=== PATIENT | female | born 1940 | race Caucasian/White ===

== ENCOUNTER → 2025-01-29 11:04 | Outpatient (REF) | payer MEDICARE, SELFPAY | LOC: RAD 11:04 | PROVIDERS: ATTENDING PHYSICIAN Physical Medicine & Rehabilitation | DX: M47.816 Spondylosis without myelopathy or radiculopathy, lumbar region (principal); M47.814 Spondylosis without myelopathy or radiculopathy, thoracic region | CPT/HCPCS: 72072; 72100 ==

== ENCOUNTER 2025-03-20 15:55 | Emergency (ER) | payer MEDICARE, SELFPAY ==
[2025-03-20 16:03] VITALS: BP 205/114
--- NOTE | 2025-03-20 18:54 | ED.GENMED ---
History of Present Illness
General
Chief Complaint: Back Pain
Source: patient
Exam Limitations: none
Time Seen by Provider: 03/20/25 18:04
Nursing documentation reviewed up to this point in time: agreed with
History of Present Illness
History of Present Illness:
Patient states she was cleaning sink and felt a pop andpain to middle back. Pain continues to worsen. Injury occurred 4 days ago. Pain radiates down back. No weakness in extremities, no bowel or bladder symptoms, no parasthesia. Denies
fever/chills recent illness.
Past History
Past History
ED Past Medical History: GERD, [place] and Other (The patient also has chronic urinary tract infections breast cancer mitral valve stenosis mitral valve prolapse aortic regurg apparently recent [place] )
ED Past Surgical History: Other (The patient's surgery is remarkable for a lumpectomy left breast but no dissection total knee replacement. )
Social History
Living: with family
Employment: Retired
Review of Systems
Review of Systems
Allergies reviewed?: Yes
All Other Systems: ROS reviewed and negative except as documented in HPI and ROS
Constitutional: Reports no symptoms
EENT: Reports no symptoms
Respiratory: Reports no symptoms
Cardiac: Reports no symptoms
ABD/GI: Reports no symptoms
: Reports no symptoms
Musculoskeletal: Reports back pain (middle back pain)
Skin: Reports no symptoms
Neurological: Reports no symptoms
Psychiatric: Reports no symptoms
Phy Exam
General Physical Exam
General Presentation: moderate distress
General age: appears stated age
General Skin: warm and dry
General Habitus: normal
General Mental: alert
Cardiovascular Exam
Cardiovascular Exam: regular rate/rhythm and no edema
Pulmonary Exam
Pulmonary Exam: lungs clear and no respiratory distress
Gastrointestinal Exam
Gastrointestinal Exam: normal bowel sounds, non tender, soft, no organomegaly and non distended
Musculoskeletal Exam
Musculoskeletal Exam: no edema and neuro vasc intact
Skin Exam
Skin Exam: normal color, warm/dry and no rash
Psychiatric Exam
Psychiatric Exam: normal mood/affect
Course
Orders/Labs/Results
Orders:
Orders
03/20/25 18:48
CR Chest - 2 Views Urgent
Comment:
Reason For Exam: pain
Thoracic Spine 3 Views CR [CR Thoracic Spine 3 Views] Urgent
Comment:
Reason For Exam: pain
03/20/25 19:18
Hydrocodone 5/APAP 325 [[place] 5/325] 1 tablet PO NOW STA
03/20/25 19:35
Ketorolac [Toradol] 15 mg IM NOW STA
Vital Signs
Initial and Last Documented VS:
Initial Vital Signs
Temp Pulse Resp BP Pulse Ox
98.7 F 108 20 205/114 96
03/20/25 16:03 03/20/25 16:03 03/20/25 16:03 03/20/25 16:03 03/20/25 16:03
Last Documented Vital Signs
Temp Pulse Resp BP Pulse Ox
98.7 F 90 16 147/110 96
03/20/25 16:03 03/20/25 19:43 03/20/25 20:02 03/20/25 20:29 03/20/25 19:43
*Radiology
Radiology exam reviewed: radiology read reviewed
*Pulse Oximetry
SaO2: 96
Oxygen Mode of Delivery: Room air
Patient hypoxic: no
*Critical Care Note
Total Time (30-74mins, 75-104mins- exclusive of procedures): Not Applicable
Update Note
Update Note:
Patient to ED wtih complaint of middle back pain. [place] a pop at site while cleaning on Saturday. Pain radiates to lower back. No weakness in exxtremities. Sensation intact. Xray confirms chroninc Thoracic compression fxs but no acute fractures.
Will provide pain medication for comfort. SHe is discharged home with daughter and will follow closely with PCP. Given number for pain management follow up. Given instructions on s/s to return to ED and she is agreeable to plan.
ED Attending Note
-
Portions of this chart may have been created with voice recognition software.� Occasional wrong word or��sound alike� substitutions may have occurred due to the inherent limitations of voice recognition software.
Discharge Plan
Departure
Patient Disposition: Home (Routine Discharge)
Date of Disposition: 03/20/25
Time of Disposition: 19:25
Patient with high blood pressure during this ER visit?: No
Condition: Good
Covid-19: Not Applicable
Discharge Problem:
Back pain
Instructions: Radiculopathy (DC), Back Pain
Prescriptions:
New
hydrocodone-acetaminophen 5-325 mg tablet
1 tab PO Q4H PRN (Reason: Pain) Qty: 14 0RF
No Action
nitrofurantoin macrocrystal 50 MG capsule
50 mg PO DAILY
tizanidine 2 MG tablet
2 mg PO BID PRN (Reason: muscle relaxant)
hydrocodone-acetaminophen [[place]] 10 MG/325 MG tablet
1 tab PO Q6HPRN PRN (Reason: pain)
omeprazole [Prilosec] 40 MG capsule,delayed release(DR/EC)
40 mg PO BID
hydroxychloroquine 200 MG tablet
200 mg PO DAILY
olmesartan 20 MG tablet
20 mg PO DAILY
Zantac
150 mg PO HS
nitrofurantoin monohyd/m-cryst 100 MG capsule
100 mg PO BID Qty: 14 0RF
Referrals:
[facility], [Other]
Saw Slater DO [Non-Admitting Privileges, Orthopedics] - Keep scheduled appt
VENKATESH SHORT CRNP [Family Provider, Family Practice]
Interventions
Interventions:
*Risk Screen - Suicide Last Done: 03/20/25 16:03
*General Assessment Last Done: 03/20/25 16:03
*Neglect/Abuse Screening Last Done: 03/20/25 16:03
*ED- Fall Risk Assessment Last Done: 03/20/25 16:03
*ED COVID-19 Vaccine History Last Done: 03/20/25 16:08
*Nursing Disposition Last Done: 03/20/25 20:30
ED-Musculoskeletal Assessment Last Done: 03/20/25 18:29
Discharge Date and Time
Discharge Date/Time: 03/20/25 20:31
Print Language: TELUGU
Musculoskeletal Injury Exam
Musculoskeletal Injury Exam
Bilateral Middle Back:
Pain with Movement?: Moderate
Tender to palpation?: Moderate
Soft tissue swelling?: None
External deformity and angulation?: None
Joint effusion?: None
Contusion?: None
Hematoma-local bleeding into tissue?: None
Strain- Sprain- Tear (Connective tissue injury)?: Moderate
Crepitus with movement?: No
Joint instability?: No
Malalignment/deformity?: No
Range of motion: Limited
Distal skin color and temperature: normal-warm & good color
Capillary Refill: normal
Normal distal neurovascular exam?: Yes
[2025-03-20] MEDS: NORCO 5/325 1 TABLET PO (19:21)
[2025-03-20] MEDS: TORADOL 15 MG IM (19:38)
[2025-03-20 20:29] VITALS: BP 147/110
== END 2025-03-20 20:31 | disposition home or self-care (01) ==
LOC: EMR 15:55
PROVIDERS: EMERGENCY PHYSICIAN Emergency Medicine; FAMILY PHYSICIAN Nurse Practitioner
DX: M54.6 Pain in thoracic spine (principal); I05.0 Rheumatic mitral stenosis; I05.8 Other rheumatic mitral valve diseases; Z85.3 Personal history of malignant neoplasm of breast
CPT/HCPCS: 99284; 96372; 71046; 72072

== ENCOUNTER → 2025-04-03 11:30 | Outpatient (REF) | payer MEDICARE, SELFPAY | LOC: MRI 3T 11:30 | PROVIDERS: ATTENDING PHYSICIAN Physical Medicine & Rehabilitation | DX: M54.14 Radiculopathy, thoracic region (principal) | CPT/HCPCS: 72146 ==